=== PATIENT | male | born 1950 | race African-American/Black ===

== ENCOUNTER 2024-08-09 08:55 | Observation (INO) | payer OTHER, SELFPAY ==
[2024-08-09] MEDS ORDERED: Aspirin Chewable 81 MG TAB ONE (09:34)
[2024-08-09 09:39] LABS: #Basophils Less than 0.03 10x3/uL (0.0-0.2); %Basophils 0.4 % (0.0-1.0); %Eosinophils 2.3 % (0.0-10.0); %Lymphocytes 35.8 % (21.0-51.0); %Monocytes 10.9 % (0.0-10.0); %Neutrophils 50.2 % (42.0-75.0); Hematocrit 40.9 % (42.0-52.0); Hemoglobin 13.4 g/dL (14.0-18.0); Mean Corpuscular HGB CONC 32.8 g/dL (32.0-36.0); Mean Corpuscular Volume 91.5 fL (78.0-98.0); Mean Platelet Volume 8.6 fL (7.4-10.4); Platelet Count 254 10x3/uL (130-400); RBC Distribution Width 13.6 % (11.5-14.5); Red Blood Cell (RBC) Count 4.47 mill/uL (4.70-6.10)
[2024-08-09 09:55] LABS: ALT (SGPT) 18 U/L (8-55); AST (SGOT) 17 U/L (5-34); Albumin 3.8 g/dL (3.4-4.8); Alkaline Phosphatase 88 U/L (40-110); Anion Gap 14 mmol/L (10-20); BUN (Urea Nitrogen) 16 mg/dL (8.4-25.7); Bilirubin, Total 0.3 mg/dL (0.2-1.2); Calc. Creatinine Clearance 0 mL/min (70-130); Calcium 9.4 mg/dL (7.8-10.44); Carbon Dioxide 26 mmol/L (23-31); Chloride 105 mmol/L (98-107); Estimated GFR 74; Globulin 3.8 g/dL (2.4-3.5); Glucose 95 mg/dL (83-110); Potassium 3.6 mmol/L (3.5-5.1); Protein, Total 7.6 g/dL (5.8-8.1); Sodium 141 mmol/L (136-145)
[2024-08-09 09:59] LABS: Troponin I Less than 0.010 ng/mL (< 0.028)
[2024-08-09 10:02] LABS: INR-International Normal Ratio 0.9; PTT 26.5 sec (22.9-36.1); Prothrombin Time 12.4 sec (12.0-14.7)
[2024-08-09 10:42] LABS: Bacteria/HPF None Seen HPF (None Seen); Bilirubin Negative (Negative); Blood, Urine Negative (Negative); CAUTI Indications for Culture Dysuria,urgency,freq; Clarity Clear (Clear); Glucose, Urine (Dipstick) Greater than 1000 mg/dL (Negative); Ketone, Urine Negative (Negative); Leukocyte Negative Leu/uL (Negative); Nitrite Negative (Negative); Protein, Urine (Dipstick) Negative (Neg-Trace); RBC/HPF None Seen HPF (0-3); Squamous Epithelial None Seen HPF (0-3); Urobilinogen Normal mg/dL (Less than 2); WBC/HPF None Seen HPF (0-3)
[2024-08-09 10:43] LABS: Urine Culture Reflex No No
[2024-08-09] MEDS ORDERED: Glucagon 1 MG/ML KIT IM PRN (11:18)
[2024-08-09] MEDS ORDERED: Senokot S 8.6-50 MG TAB PO PRN (11:18)
[2024-08-09] MEDS ORDERED: Insulin Lispro 100 UNIT/ML 10 ML VIAL SC PRN ×2 (11:18)
[2024-08-09] MEDS ORDERED: Dextrose 50% Abboject 50 ML SYRINGE SLOW IVP PRN (11:18)
[2024-08-09] MEDS ORDERED: Dextrose 5% in Water 1,000 ML IV PRN (11:18)
[2024-08-09 15:50] LABS: Hemoglobin A1c 7.6 % (4.0-6.0)
[2024-08-09 17:12] VITALS: BMI 30.3
[2024-08-09] MEDS: Atorvastatin Calcium 40 MG TAB PO SCH (21:02)
[2024-08-09] MEDS: Insulin Glargine 30 UNITS/0.3 ML VIAL SC SCH (21:02)
[2024-08-09] MEDS: Tamsulosin HCl 0.4 MG CAP PO SCH (21:02)
[2024-08-09] MEDS: Pantoprazole 40 MG VIAL IVP SCH (22:18)
[2024-08-09] MEDS: Clopidogrel Bisulfate 300 MG TAB PO SCH (22:18)
[2024-08-10 05:04] LABS: #Basophils Less than 0.03 10x3/uL (0.0-0.2); %Basophils 0.4 % (0.0-1.0); %Eosinophils 2.5 % (0.0-10.0); %Lymphocytes 32.5 % (21.0-51.0); %Monocytes 12.9 % (0.0-10.0); %Neutrophils 51.7 % (42.0-75.0); Hematocrit 37.3 % (42.0-52.0); Hemoglobin 11.8 g/dL (14.0-18.0); Mean Corpuscular HGB CONC 31.6 g/dL (32.0-36.0); Mean Corpuscular Hemoglobin 29.2 pg (27.0-31.0); Mean Corpuscular Volume 92.3 fL (78.0-98.0); Mean Platelet Volume 8.5 fL (7.4-10.4); Platelet Count 237 10x3/uL (130-400); RBC Distribution Width 13.8 % (11.5-14.5); Red Blood Cell (RBC) Count 4.04 mill/uL (4.70-6.10)
[2024-08-10 05:32] LABS: Anion Gap 14 mmol/L (10-20); BUN (Urea Nitrogen) 16 mg/dL (8.4-25.7); Calc. Creatinine Clearance 93 mL/min (70-130); Calcium 8.7 mg/dL (7.8-10.44); Carbon Dioxide 23 mmol/L (23-31); Cardiac Risk 4.2 (Less than 4.5); Chloride 107 mmol/L (98-107); Cholesterol 198 mg/dl (< 200 Desired); Estimated GFR 78; Glucose 103 mg/dL (83-110); HDL Cholesterol 47 mg/dL (>60 Neg Risk); LDL Cholesterol, Calculated 139 mg/dL; Potassium 3.9 mmol/L (3.5-5.1); Sodium 140 mmol/L (136-145); Triglycerides 59 mg/dL (Less than 150)
[2024-08-10] MEDS: Aspirin 81 mg Enteric Coated Tablet PO SCH (08:39)
[2024-08-10] MEDS: Clopidogrel Bisulfate 75 MG TAB PO SCH ×2 (08:39→10:52)
[2024-08-10] MEDS: Enoxaparin 40 MG (0.4 mL) SYRINGE SC SCH (08:40)
[2024-08-10] MEDS ORDERED: Losartan 25 MG TAB PO SCH (09:00)
[2024-08-10 11:50] VITALS: TEMP 98.3
[2024-08-10 15:00] VITALS: BP 138/87
[2024-08-11] MEDS ORDERED: Losartan 25 MG TAB PO SCH (09:00)
== END 2024-08-10 16:20 | disposition home or self-care (01) ==
LOC: ERS 08:55 → ERHOLD 11:09 → 2SE 16:53
PROVIDERS: ADMIT Family Medicine; ATTEND Family Medicine
PROC: B24BZZZ Ultrasonography of Heart with Aorta (ICD-10-PCS; principal; 2024-08-10)
DX: I63.9 Cerebral infarction, unspecified (principal); C61 Malignant neoplasm of prostate; I10 Essential (primary) hypertension; E11.9 Type 2 diabetes mellitus without complications; H40.9 Unspecified glaucoma; N40.0 Benign prostatic hyperplasia without lower urinary tract symptoms; R29.703 NIHSS score 3; Z96.652 Presence of left artificial knee joint; Z87.891 Personal history of nicotine dependence; Z79.2 Long term (current) use of antibiotics; Z79.84 Long term (current) use of oral hypoglycemic drugs; Z79.899 Other long term (current) drug therapy
CPT/HCPCS: 36415; 36416; 70450; 70496; 70498; 70551; 71045; 80048; 80053; 80061; 81001; 83036; 84443; 84484; 85025; 85610; 85730; 93005; 93306; 94760; G0378; J1815